=== PATIENT | female | born 1975 | race Caucasian/White ===

== ENCOUNTER 2016-11-12 10:04 | Emergency (ER) | payer OTHER ==
[~2016-11-12] VITALS: Wt 89.0 kg
[~2016-11-12 10:04] MED LIST: ALBU2.5V3 NEB; ALBU8.5H5 IH; BEN25 PO; ENAL2.5T36 PO; GABA100C PO; IBUP800T25 PO; LEVO100T96 PO; MOME13HF2 IH; MONT10TA21 PO; ZOC10 PO
[2016-11-12] MEDS ORDERED: ALBUTEROL 0.5% (NEB) 2.5 MG/0.5 ML AMP HHN STA (10:43)
[2016-11-12] MEDS ORDERED: IPRATROPIUM (NEB) 0.5 MG/2.5 ML AMP HHN ONE (11:00)
[2016-11-12] MEDS ORDERED: DEXAMETHASONE 10 MG/ML 1 ML INJ IM ONE (11:00)
--- NOTE | 2016-11-12 11:23 | RADRPT ---
PROCEDURE: Chest Radiograph. CLINICAL INDICATION: Cough TECHNIQUE: Single frontal chest radiograph. COMPARISON: Chest radiograph 08/09/2016 FINDINGS: The cardiomediastinal silhouette is within normal limits. Lung volumes are decreased there is mild basilar atelectasis. No infiltrate or effusion is seen. The bones are intact. IMPRESSION: 1. Mild bibasilar atelectasis. 2. Otherwise unremarkable chest radiograph. RPTAT: KK .Isra Azevedo MD, MD Date Time Electronically viewed and signed by .Isra Azevedo MD, on 11/12/2016 11:23 .B/
[2016-11-12] MEDS ORDERED: MED4DP PO (11:40)
[2016-11-12] MEDS ORDERED: D-ME473S2 PO (11:41)
[2016-11-12 12:00] VITALS: BP 144/97; PULSE 110; RESP 20; TEMP 98.2
--- NOTE | 2016-11-12 12:13 | ERD ---
ER Documentation Chief Complaint Date/Time DATE: 11/12/16 TIME: 12:10 Chief Complaint asthma flare up since last night, inhaler not working HPI This is a 41 y/o female that presents to the ER stating her "asthma is very bad. " Patient developed a cough yesterday. Cough is productive and constant. Patient denies any chest pain however does admit to shortness of breath. Patient had a fever yesterday. Patient has been trying her inhaler however it is not working. ROS 12 point review of systems was done, all negative except per HPI. Medications Home Meds Active Scripts Dextromethorphan Hb-Promethazine Hcl* (Promethazine DM* Syrup) 473 Ml Syrup, 10 ML PO Q6 Y for COUGH for 3 Days, ML Prov:DEMETRA RAJPUT 11/12/16 Methylprednisolone* (Medrol* DOSE PACK) 4 Mg/Dose-Pack Tab.ds.pk, 4 MG PO . DIRECTED for 3 Days, PACKET Prov:DEMETRA RAJPUT 11/12/16 Gabapentin* (Neurontin*) 100 Mg Capsule, 100 MG PO TID, #30 CAP Prov:DAMIEN BROWN DO 08/09/16 Diphenhydramine Hcl* (Benadryl*) 25 Mg Cap, 25 MG PO Q6, #30 CAP Prov:DAMIEN BROWN DO 06/01/15 Ibuprofen* (Motrin*) 800 Mg Tab, 800 MG PO Q6, #30 TAB Prov:DAMIEN BROWN DO 06/01/15 Enalapril Maleate* (Vasotec*) 2.5 Mg Tab, 5 MG PO DAILY for high BP, #60 Prov:RICARDO WARD MD 07/19/14 Reported Medications Albuterol Sulfate* (Albuterol Sulfate* Neb) 0.083%-3 Ml Neb, 1.25 MG NEB Q3H Y for WHEEZING AND SOB, EA 02/14/15 Montelukast Sodium* (Singulair*) 10 Mg Tablet, 10 MG PO HS, TAB 07/16/14 Mometasone-Formoterol (Dulera) 100-5 Mcg - 13 Gm Hfa.aer.ad, 2 PUFFS IH BID, EA 07/16/14 Levothyroxine Sodium* (Synthroid*) 100 Mcg Tablet, 100 MCG PO AC BREAKFAST, TAB 07/16/14 Albuterol Sulfate* (Albuterol Sulfate* HFA) 8.5 Gm Hfa.aer.ad, 2 PUFF IH Q4H Y for WHEEZING AND SOB, EA 07/16/14 Simvastatin (Simvastatin) 10 Mg Tablet, 10 MG PO HS, TAB 05/31/14 Allergies Allergies: Coded Allergies: Penicillins (Verified Allergy, Mild, 02/25/15) PMhx/Soc History of Surgery: Yes (, thyroidectomy) Anesthesia Reaction: No Hx Neurological Disorder: No Hx Respiratory Disorders: Yes (asthma) Hx Cardiac Disorders: Yes (htn) Hx Psychiatric Problems: No Hx Miscellaneous Medical Probl: Yes (THYROID CA ) Hx Alcohol Use: No Hx Substance Use: No Hx Tobacco Use: No Physical Exam Vitals Vital Signs Date Time Temp Pulse Resp B/P Pulse Ox O2 Delivery O2 Flow Rate FiO2 11/12/16 12:00 98.2 110 20 144/97 99 Room Air 11/12/16 10:54 80 19 95 21 11/12/16 10:25 99.3 106 24 180/101 98 Physical Exam GENERAL: The patient is well-developed, well-nourished, in no acute distress. NECK: Cervical spine is non tender with no step off. Supple, no nuchal rigidity HEENT: Atraumatic. Pupils equal, round and reactive to light. Extraocular muscles are grossly intact. Conjunctivae pink, no discharge. Bilateral tympanic membranes are clear with no evidence of erythema, effusion or dulling of the light reflex. Tonsilar erythema with no exudates or uvular deviation. Clear rhinorrhea. RESPIRATORY: Trach wheezing in all lung odonnell. no rales, rhonchi, or crackles. HEART: Regular rate and rhythm. No murmurs, clicks, rubs or gallops. EXTREMITIES: No clubbing or cyanosis. Full range of motion. Grossly neurovascularly intact. NEUROLOGIC: Alert and oriented. Cranial nerves II through XII are intact. SKIN: There is no rash. The skin is warm and dry. Results 24 hrs Current Medications Medications (Trade) Dose Ordered Sig/Stanley Route PRN Reason Start Time Stop Time Status Last Admin Dose Admin Albuterol (Proventil 0.5% (Neb)) 10 mg ONCE STAT HHN 11/12/16 10:43 11/12/16 10:45 DC 11/12/16 10:52 Ipratropium [place] (Atrovent 0.02% (Neb)) 0.5 mg ONCE ONCE HHN 11/12/16 11:00 11/12/16 11:01 DC 11/12/16 10:52 Dexamethasone (Decadron) 10 mg ONCE ONCE IM 11/12/16 11:00 11/12/16 11:01 DC 11/12/16 11:52 Procedures/MDM Differential diagnosis includes but is not limited to; Viral URI, allergic rhinitis, bronchitis, pertussis,pneumonia. This is likely viral in etiology. Clinical suspicion for pneumonia is low as patient appears well, is not hypoxic or in any respiratory distress. Patient's asthma was exacerbated most more than likely by upper respiratory infection. Patient will be sent home with a steroid pack. Upon reexamination patient felt significantly better after hour- long nebulizing treatment. Plan was discussed with patient they understand and agree. Patient needs to follow up with PCP in 1-2 days or return to ER sooner if symptoms worsen. Departure Diagnosis: Primary Impression: Upper respiratory infection Condition: Stable Patient Instructions: Preventing Common Respiratory Infections Additional Instructions: Call your primary care doctor TOMORROW for an appointment during the next 1-2 days.See the doctor sooner or return here if your condition worsens before your appointment time. DEMETRA RAJPUT Nov 12, 2016 12:13
== END 2016-11-12 12:03 | disposition home or self-care (01) ==
LOC: FTE 10:04
DX: J06.9 Acute upper respiratory infection, unspecified (principal); J45.901 Unspecified asthma with (acute) exacerbation; I10 Essential (primary) hypertension; E03.9 Hypothyroidism, unspecified; Z85.850 Personal history of malignant neoplasm of thyroid
CPT/HCPCS: 71010; 94664; 96372; J1100; Z7502; Z7610